=== PATIENT | male | born 1960 | race African-American/Black ===

== ENCOUNTER 2025-06-30 13:36 | Inpatient (IN) | payer BC, MEDICAID ==
[~2025-06-30] VITALS: Ht 180.3 cm; Wt 68.9 kg
[2025-06-30 13:53] VITALS: O2SAT 100
[2025-06-30] MEDS: VANCOMYCIN 1G PREMIX 200 ML IV ONE (14:27)
[2025-06-30] MEDS: SODIUM CHLORIDE 0.9% (SEPSIS BOLUS) IV ONE (14:27)
[2025-06-30 14:55] LABS: HEMATOCRIT. 30.1 % (42.0-52.0); HEMOGLOBIN. 9.9 g/dL (14.0-18.0); MEAN PLATELET VOLUME 8.3 fl (7.4-10.4); PLATELET 445 x1000/uL (130-400); RED BLOOD CELL COUNT 3.56 mill/uL (4.7-6.1); RED CELL DISTRIBUTION WIDTH 23.1 % (11.6-14.6)
[2025-06-30 15:08] LABS: CREATININE 2.9 mg/dL (0.6-1.3); INR 1.1; UREA NITROGEN BLOOD 42 mg/dL (9-23)
[2025-06-30 15:09] LABS: TROPONIN I HIGH SENSITIVITY 11 ng/L (3.0-53)
[2025-06-30 15:10] LABS: ASPARTATE AMINOTRANSFERASE 13 IU/L (<34); BILIRUBIN DIRECT 0.1 mg/dL (<=3.0); BILIRUBIN TOTAL 0.3 mg/dL (0.1-1.0); PROTEIN TOTAL 9.1 g/dL (6.0-8.3)
[2025-06-30 16:19] LABS: BAND% 1.0 % (1.0-6.0); LYMPHOCYTES % MANUAL 10.0 % (20.0-50.0); MONOCYTES % MANUAL 6.0 % (2.0-8.0); NEUTROPHILS % MANUAL 83.0 % (45.0-75.0); PLATELET ESTIMATE INCREASED
[2025-06-30] MEDS: MAGNESIUM 2 G PREMIX 50 ML IV ONE (16:24)
[2025-06-30 18:40] LABS: CLARITY URINE CLEAR (CLEAR); COLOR URINE YELLOW (YELLOW); GLUCOSE URINE NEGATIVE (NEGATIVE); KETONES URINE NEGATIVE (NEGATIVE); LEUKOCYTE ESTERASE URINE NEGATIVE (NEGATIVE); NITRITE URINE NEGATIVE (NEGATIVE); OCCULT BLOOD URINE 1+ (NEGATIVE); PH URINE 6.0 (4.5-8.0); PROTEIN URINE 2+ (NEGATIVE); SPECIFIC GRAVITY URINE 1.008 (1.005-1.030); UROBILINOGEN URINE 1.0 E.U./dL (0.2-1.0)
[2025-06-30] MEDS ORDERED: ZOLPIDEM TARTRATE 5MG TABLET PO PRN (18:45)
[2025-06-30] MEDS ORDERED: MORPHINE SULFATE 2 MG/ML INJ (NOT FOR IM USE) IV PRN (18:45)
[2025-06-30] MEDS ORDERED: ONDANSETRON HCL 4MG/2ML INJ IV PRN (18:45)
[2025-06-30] MEDS ORDERED: MAGNESIUM/ALUMINUM HYDROXIDE/SIMETHICONE 30ML UDC PO PRN (18:45)
[2025-06-30] MEDS ORDERED: CLONIDINE 0.1MG TABLET PO PRN (18:45)
[2025-06-30] MEDS ORDERED: HYDROCODONE/ACETAMINOPHEN 5/325MG TABLET PO PRN (18:45)
[2025-06-30 19:18] LABS: RBC URINE NONE SEEN /hpf (0-2); WBC URINE 0-2 /hpf (0-2)
[2025-06-30 19:19] LABS: BACTERIA URINE TRACE
[2025-06-30] MEDS: PIPERACILLIN/TAZO 3.375G/50ML 50 ML IV SCH (22:02)
[2025-06-30] MEDS: SODIUM CHLORIDE 0.9% 1,000 ML IV SCH (22:02)
[2025-06-30] MEDS: ENOXAPARIN 30MG/0.3ML SYR SUBCUT SCH (22:03)
[2025-06-30 22:30] VITALS: BP 136/78; PULSE 101; RESP 16; TEMP 36.4; O2SAT 100
[2025-07-01] VITALS (7 sets, daily range): BP systolic 117–136; BP diastolic 66–97; PULSE 78–101; RESP 14–18; TEMP 36.418–37.2; O2SAT 97–100
[2025-07-01 00:50] LABS: TROPONIN I HIGH SENSITIVITY 13 ng/L (3.0-53)
[2025-07-01] MEDS: ACETAMINOPHEN 325MG TABLET PO PRN (04:11)
[2025-07-01 07:09] LABS: HEMATOCRIT. 25.5 % (42.0-52.0); HEMOGLOBIN. 8.5 g/dL (14.0-18.0); MEAN PLATELET VOLUME 8.1 fl (7.4-10.4); PLATELET 390 x1000/uL (130-400); RED BLOOD CELL COUNT 3.03 mill/uL (4.7-6.1); RED CELL DISTRIBUTION WIDTH 23.4 % (11.6-14.6)
[2025-07-01 07:43] LABS: UREA NITROGEN BLOOD 27.0 mg/dL (9-23)
[2025-07-01 08:32] LABS: CREATININE 1.6 mg/dL (0.6-1.3)
[2025-07-01 08:38] LABS: *AMPHETAMINES SCREEN URINE NEGATIVE (NEGATIVE); *BARBITURATES SCREEN URINE NEGATIVE (NEGATIVE)
[2025-07-01 08:40] LABS: *BENZODIAZEPINES SCREEN URINE NEGATIVE (NEGATIVE); *COCAINE SCREEN URINE NEGATIVE (NEGATIVE); CANNABINOID URINE SCREEN NEGATIVE (NEGATIVE); ECSTASY MDMA SCREEN URINE NEGATIVE (NEGATIVE); METHADONE URINE SCREEN NEGATIVE (NEGATIVE); OPIATES URINE SCREEN NEGATIVE (NEGATIVE); PHENCYCLIDINE URINE SCREEN NEGATIVE (NEGATIVE)
[2025-07-01] MEDS ORDERED: VANCOMYCIN 750MG PREMIX 150 ML IV SCH (09:00)
[2025-07-01] MEDS: PANTOPRAZOLE SODIUM 40 MG/VIAL IV SCH (09:20)
[2025-07-01 10:06] LABS: TROPONIN I HIGH SENSITIVITY 21 ng/L (3.0-53)
[2025-07-01 12:21] LABS: BAND% 2.0 % (1.0-6.0); EOSINOPHILS % MANUAL 1.0 % (0.0-5.0); LYMPHOCYTES % MANUAL 6.0 % (20.0-50.0); MONOCYTES % MANUAL 10.0 % (2.0-8.0); NEUTROPHILS % MANUAL 81.0 % (45.0-75.0); PLATELET ESTIMATE NORMAL
[2025-07-01] MEDS ORDERED: MORPHINE SULFATE 4 MG/ML INJ (FOR IV/IM USE) IV PRN (12:30)
[2025-07-01] MEDS ORDERED: NALOXONE HCL 0.4MG/ML VIAL IV PRN (12:45)
[2025-07-01 14:10] LABS: TRIGLYCERIDE 131.0 mg/dL (0-150)
[2025-07-01 14:11] LABS: LDL CHOLESTEROL 51.0 mg/dL (5-100)
[2025-07-01] MEDS: POTASSIUM CHLORIDE 20MEQ TABLET SR PO SCH (17:07)
[2025-07-01] MEDS: VANCOMYCIN 750MG PREMIX 150 ML IV SCH (17:29)
[2025-07-02] VITALS: BP 124/84; PULSE 79; RESP 16; TEMP 36.8; O2SAT 99
[2025-07-02 04:00] VITALS: BP 120/81; PULSE 73; RESP 14; TEMP 36.7; O2SAT 99
[2025-07-02 07:54] LABS: BASOPHILS % 0.2 % (0.0-2.0); EOSINOPHILS % 0.5 % (0.0-5.0); HEMATOCRIT. 28.7 % (42.0-52.0); HEMOGLOBIN. 9.2 g/dL (14.0-18.0); LYMPHOCYTES % 10.1 % (20.0-50.0); MEAN PLATELET VOLUME 8.6 fl (7.4-10.4); MONOCYTES % 10.6 % (2.0-8.0); NEUTROPHILS % 78.6 % (40.0-76.0); PLATELET 371 x1000/uL (130-400); RED BLOOD CELL COUNT 3.33 mill/uL (4.7-6.1); RED CELL DISTRIBUTION WIDTH 23.5 % (11.6-14.6)
[2025-07-02 08:00] VITALS: BP 137/78; PULSE 79; RESP 16; TEMP 36.6; O2SAT 100
[2025-07-02 08:07] LABS: ADD RBC MORPHOLOGY NO
[2025-07-02 08:12] LABS: CREATININE 1.4 mg/dL (0.6-1.3); UREA NITROGEN BLOOD 13 mg/dL (9-23)
[2025-07-02 12:00] VITALS: BP 114/76; PULSE 75; RESP 20; TEMP 37; O2SAT 99
[2025-07-02 16:00] VITALS: BP 136/86; PULSE 81; RESP 14; TEMP 36.7; O2SAT 99
[2025-07-02] MEDS: VANCOMYCIN 750MG PREMIX 150 ML IV SCH (18:01)
[2025-07-02 20:00] VITALS: BP 130/75; PULSE 87; RESP 15; TEMP 36.6; O2SAT 99
[2025-07-03] VITALS: BP 145/91; PULSE 88; RESP 13; TEMP 36.7; O2SAT 99
[2025-07-03 04:00] VITALS: BP 155/94; PULSE 82; RESP 13; TEMP 36.4; O2SAT 100
[2025-07-03 07:44] LABS: BASOPHILS % 0.6 % (0.0-2.0); EOSINOPHILS % 1.0 % (0.0-5.0); HEMATOCRIT. 25.6 % (42.0-52.0); HEMOGLOBIN. 8.7 g/dL (14.0-18.0); LYMPHOCYTES % 14.0 % (20.0-50.0); MEAN PLATELET VOLUME 8.5 fl (7.4-10.4); MONOCYTES % 8.4 % (2.0-8.0); NEUTROPHILS % 76.0 % (40.0-76.0); PLATELET 389 x1000/uL (130-400); RED BLOOD CELL COUNT 3.03 mill/uL (4.7-6.1); RED CELL DISTRIBUTION WIDTH 23.2 % (11.6-14.6)
[2025-07-03 07:51] LABS: ADD RBC MORPHOLOGY NO
[2025-07-03 07:57] LABS: CREATININE 1.1 mg/dL (0.6-1.3); UREA NITROGEN BLOOD 9 mg/dL (9-23)
[2025-07-03 08:00] VITALS: BP 136/79; PULSE 94; RESP 16; TEMP 37.1; O2SAT 100
[2025-07-03 12:00] VITALS: BP 151/101; PULSE 86; RESP 13; TEMP 36.7; O2SAT 92
[2025-07-03 16:00] VITALS: BP 153/90; PULSE 86; RESP 15; TEMP 36.6; O2SAT 99
[2025-07-03 20:00] VITALS: BP 143/81; PULSE 85; RESP 12; TEMP 36.5; O2SAT 100
[2025-07-03] MEDS: VANCOMYCIN 1GM PMX (XELLIA) 200 ML IV SCH (21:31)
[2025-07-04] VITALS: BP 150/93; PULSE 84; RESP 14; TEMP 36.7; O2SAT 96
[2025-07-04 04:00] VITALS: BP 160/78; PULSE 82; RESP 15; TEMP 36.9; O2SAT 96
[2025-07-04 07:31] LABS: BASOPHILS % 0.6 % (0.0-2.0); EOSINOPHILS % 1.6 % (0.0-5.0); HEMATOCRIT. 25.4 % (42.0-52.0); HEMOGLOBIN. 8.4 g/dL (14.0-18.0); LYMPHOCYTES % 15.4 % (20.0-50.0); MEAN PLATELET VOLUME 8.4 fl (7.4-10.4); MONOCYTES % 8.7 % (2.0-8.0); NEUTROPHILS % 73.7 % (40.0-76.0); PLATELET 393 x1000/uL (130-400); RED BLOOD CELL COUNT 3.00 mill/uL (4.7-6.1); RED CELL DISTRIBUTION WIDTH 23.9 % (11.6-14.6)
[2025-07-04 07:45] LABS: CREATININE 1.2 mg/dL (0.6-1.3); UREA NITROGEN BLOOD 9 mg/dL (9-23)
[2025-07-04 08:00] VITALS: BP 157/94; PULSE 76; RESP 18; TEMP 36.9; O2SAT 100
[2025-07-04 12:00] VITALS: BP 131/88; PULSE 77; RESP 18; TEMP 36.8; O2SAT 98
[2025-07-04 16:00] VITALS: BP 150/94; PULSE 75; TEMP 36.7; O2SAT 97
[2025-07-04 20:00] VITALS: BP 152/92; PULSE 80; RESP 22; TEMP 36.7; O2SAT 96
[2025-07-04] MEDS: VANCOMYCIN 750MG PREMIX 150 ML IV SCH (21:40)
[2025-07-05] VITALS: BP 171/105; PULSE 82; RESP 18; TEMP 36.6; O2SAT 98
[2025-07-05 04:00] VITALS: BP 152/99; PULSE 99; RESP 18; TEMP 36.3; O2SAT 98
[2025-07-05 08:00] VITALS: BP_SYST 126; BP_SYST 141; BP_DIAS 93; BP_DIAS 95; PULSE 83; PULSE 99; RESP 12; RESP 19; TEMP 36.6; TEMP 36.7; O2SAT 99
[2025-07-05] MEDS: FAMOTIDINE 20MG/2ML VIAL IV SCH (08:33)
[2025-07-05 12:00] VITALS: BP 128/91; PULSE 99; RESP 13; TEMP 36.8; O2SAT 99
[2025-07-05 16:00] VITALS: BP 141/93; PULSE 83; RESP 12; TEMP 36.7; O2SAT 99
[2025-07-05 20:00] VITALS: BP 140/86; PULSE 82; RESP 18; TEMP 36.8; O2SAT 98
[2025-07-05] MEDS: ENOXAPARIN 40MG/0.4ML SYR SUBCUT SCH (21:28)
[2025-07-06] VITALS: BP 144/103; PULSE 87; RESP 20; TEMP 36.6; O2SAT 99
[2025-07-06 04:00] VITALS: BP 150/102; PULSE 93; RESP 19; TEMP 36.7; O2SAT 100
[2025-07-06 06:39] LABS: BASOPHILS % 1.0 % (0.0-2.0); EOSINOPHILS % 2.3 % (0.0-5.0); HEMATOCRIT. 25.3 % (42.0-52.0); HEMOGLOBIN. 8.3 g/dL (14.0-18.0); LYMPHOCYTES % 20.1 % (20.0-50.0); MEAN PLATELET VOLUME 8.0 fl (7.4-10.4); MONOCYTES % 10.0 % (2.0-8.0); NEUTROPHILS % 66.6 % (40.0-76.0); PLATELET 427 x1000/uL (130-400); RED BLOOD CELL COUNT 3.01 mill/uL (4.7-6.1); RED CELL DISTRIBUTION WIDTH 23.9 % (11.6-14.6)
[2025-07-06 06:59] LABS: CREATININE 1.1 mg/dL (0.6-1.3); UREA NITROGEN BLOOD 9 mg/dL (9-23)
[2025-07-06 08:00] VITALS: BP 136/94; PULSE 92; RESP 19; TEMP 37.1; O2SAT 100
[2025-07-06] MEDS ORDERED: POLYMYXIN B SULFATE 500000 UNITS/VIAL ONE (10:20)
[2025-07-06] MEDS ORDERED: LIDOCAINE HCL 1% 10 MG/ML 10ML VIAL ONE (10:21)
[2025-07-06] MEDS ORDERED: BUPIVACAINE HCL/PF 0.5% (5MG/ML) 10ML ONE (10:21)
[2025-07-06] MEDS ORDERED: VANCOMYCIN HCL 1GM VIAL ONE (10:22)
[2025-07-06 12:00] VITALS: BP 135/87; PULSE 87; RESP 13; TEMP 37.1; O2SAT 97
[2025-07-06] MEDS ORDERED: MIDAZOLAM HCL 2 MG/2 ML VIAL ONE ×2 (13:25→13:44)
[2025-07-06] MEDS ORDERED: FENTANYL CITRATE/PF 50MCG/ML 2ML VIAL ONE ×2 (13:25→13:51)
[2025-07-06] MEDS ORDERED: ONDANSETRON HCL 4MG/2ML INJ IV PRN (13:30)
[2025-07-06] MEDS ORDERED: HYDROMORPHONE HCL/PF 1MG/ML INJ IV PRN (13:30)
[2025-07-06] MEDS ORDERED: PROPOFOL 200MG/20ML VIAL IV ONE (13:57)
[2025-07-06 16:00] VITALS: BP 151/95; PULSE 76; RESP 12; TEMP 36.6; O2SAT 98
[2025-07-06 20:00] VITALS: BP 144/95; PULSE 97; RESP 12; TEMP 36.8; O2SAT 98
[2025-07-06] MEDS: AMLODIPINE 2.5MG TABLET PO SCH (20:59)
[2025-07-07] VITALS: BP 139/93; PULSE 78; RESP 16; TEMP 36.7; O2SAT 100
[2025-07-07 04:00] VITALS: BP 148/88; PULSE 78; RESP 15; TEMP 36.6; O2SAT 100
[2025-07-07 08:00] VITALS: BP 126/78; PULSE 79; RESP 11; TEMP 36.8; O2SAT 99
[2025-07-07 12:00] VITALS: BP 136/83; PULSE 78; RESP 13; TEMP 36.9; O2SAT 99
[2025-07-07 16:00] VITALS: BP 127/78; PULSE 87; RESP 12; TEMP 36.9; O2SAT 99
[2025-07-07 20:00] VITALS: BP 130/78; PULSE 81; RESP 14; TEMP 37; O2SAT 99
[2025-07-07] MEDS: FAMOTIDINE 20MG TABLET PO SCH (21:09)
[2025-07-07] MEDS: ENOXAPARIN 40MG/0.4ML SYR SUBCUT SCH (21:10)
[2025-07-08] VITALS: BP 135/81; PULSE 85; RESP 15; TEMP 36.9; O2SAT 100
[2025-07-08 04:00] VITALS: BP 150/90; PULSE 76; RESP 16; TEMP 36.6; O2SAT 98
[2025-07-08 12:00] VITALS: BP 133/86; PULSE 78; RESP 12; TEMP 36.8; O2SAT 100
[2025-07-08] MEDS: AMPICILLIN SOD/SULBACTAM NA 3 G in SODIUM CHLORIDE 0.9% 100 ML IV SCH (13:51)
[2025-07-08 16:00] VITALS: BP 120/68; PULSE 76; RESP 14; TEMP 36.8; O2SAT 95
[2025-07-08 20:01] VITALS: BP 128/80; PULSE 92; RESP 19; TEMP 36.7; O2SAT 99
[2025-07-09] VITALS (7 sets, daily range): BP systolic 117–144; BP diastolic 75–93; PULSE 78–91; RESP 10–22; TEMP 36.2–36.9; O2SAT 97–100
[2025-07-09] MEDS ORDERED: AMLO2.5T45 PO (08:47)
[2025-07-09] MEDS ORDERED: AMOX1TAB16 MT (08:47)
[2025-07-09] MEDS ORDERED: HYDR-4001 MT (08:47)
[2025-07-09 09:33] LABS: BASOPHILS % 0.7 % (0.0-2.0); EOSINOPHILS % 3.2 % (0.0-5.0); HEMATOCRIT. 26.5 % (42.0-52.0); HEMOGLOBIN. 8.7 g/dL (14.0-18.0); LYMPHOCYTES % 27.0 % (20.0-50.0); MEAN PLATELET VOLUME 7.7 fl (7.4-10.4); MONOCYTES % 6.7 % (2.0-8.0); NEUTROPHILS % 62.4 % (40.0-76.0); PLATELET 424 x1000/uL (130-400); RED BLOOD CELL COUNT 3.14 mill/uL (4.7-6.1); RED CELL DISTRIBUTION WIDTH 24.2 % (11.6-14.6)
[2025-07-09 09:44] LABS: CREATININE 1.1 mg/dL (0.6-1.3)
[2025-07-09 09:45] LABS: UREA NITROGEN BLOOD 8 mg/dL (9-23)
[2025-07-10] VITALS: BP 135/85; PULSE 89; RESP 20; TEMP 36.4; O2SAT 99
[2025-07-10 04:00] VITALS: BP 121/84; PULSE 73; RESP 18; TEMP 36.2; O2SAT 98
[2025-07-10 08:00] VITALS: BP 140/94; PULSE 78; RESP 15; TEMP 36.7; O2SAT 98
[2025-07-10 12:00] VITALS: BP 152/87; PULSE 79; RESP 17; TEMP 36.4; O2SAT 100
[2025-07-10 16:00] VITALS: BP 104/57; PULSE 86; RESP 18; TEMP 36.8; O2SAT 98
[2025-07-10 20:00] VITALS: BP 113/83; PULSE 94; RESP 18; TEMP 36.3; O2SAT 98
[2025-07-11] VITALS: BP 105/68; PULSE 85; RESP 18; TEMP 36.3; O2SAT 98
[2025-07-11 04:00] VITALS: BP 126/80; PULSE 82; RESP 18; TEMP 36.4
[2025-07-11 08:00] VITALS: BP 121/79; PULSE 77; RESP 18; TEMP 36.8
[2025-07-11 12:00] VITALS: BP 112/62; PULSE 81; RESP 18; TEMP 36.7; O2SAT 100
[2025-07-11 16:00] VITALS: BP 114/65; PULSE 85; RESP 18; TEMP 36.6; O2SAT 98
[2025-07-11 20:00] VITALS: BP 124/75; PULSE 80; RESP 18; TEMP 36.5; O2SAT 99
[2025-07-12] VITALS: BP 122/81; PULSE 81; RESP 19; TEMP 37.1; O2SAT 98
[2025-07-12 04:00] VITALS: BP 125/80; PULSE 18; RESP 18; TEMP 37.1; O2SAT 97
[2025-07-12 08:00] VITALS: BP 152/95; PULSE 89; RESP 19; TEMP 36.4; O2SAT 99
[2025-07-12 12:00] VITALS: BP 112/78; PULSE 93; RESP 19; TEMP 37.2; O2SAT 99
[2025-07-12 16:00] VITALS: BP 111/78; PULSE 84; RESP 20; TEMP 37; O2SAT 98
[2025-07-12 20:00] VITALS: BP 109/70; PULSE 83; RESP 18; TEMP 37; O2SAT 99
[2025-07-13] VITALS: BP 112/70; PULSE 77; RESP 16; TEMP 36.4; O2SAT 98
[2025-07-13 04:00] VITALS: BP 133/79; PULSE 83; RESP 16; TEMP 36.3; O2SAT 97
[2025-07-13 08:00] VITALS: BP 117/76; PULSE 87; RESP 18; TEMP 36.5; O2SAT 99
[2025-07-13 12:00] VITALS: BP 110/88; PULSE 87; RESP 18; TEMP 36.3; O2SAT 98
[2025-07-13 16:00] VITALS: BP 108/78; PULSE 83; RESP 18; TEMP 36.5; O2SAT 98
[2025-07-13 20:00] VITALS: BP 119/75; PULSE 82; RESP 18; TEMP 36.2; O2SAT 99
[2025-07-14] VITALS: BP 120/77; PULSE 79; RESP 18; TEMP 36.3; O2SAT 99
[2025-07-14 04:00] VITALS: BP 124/79; PULSE 84; RESP 19; TEMP 36.2; O2SAT 98
[2025-07-14 08:00] VITALS: BP 121/83; PULSE 87; RESP 18; TEMP 36.5; O2SAT 99
[2025-07-14 12:00] VITALS: BP 120/77; PULSE 83; RESP 16; TEMP 36.6; O2SAT 99
[2025-07-14 16:00] VITALS: BP 119/76; PULSE 81; RESP 16; TEMP 37.4; O2SAT 99
[2025-07-14 20:00] VITALS: BP 101/60; PULSE 80; RESP 18; TEMP 36.3; O2SAT 98
[2025-07-15] VITALS: BP 101/60; PULSE 80; RESP 18; TEMP 36.3; O2SAT 98
[2025-07-15 04:00] VITALS: BP 106/58; PULSE 74; RESP 18; TEMP 36.7; O2SAT 99
[2025-07-15 08:00] VITALS: BP 115/71; PULSE 84; RESP 17; TEMP 36.7; O2SAT 99
[2025-07-15 12:00] VITALS: BP 110/76; PULSE 87; RESP 18; TEMP 36.7; O2SAT 99
[2025-07-15 16:00] VITALS: BP 108/80; PULSE 81; RESP 18; TEMP 36.7; O2SAT 99
[2025-07-15 20:00] VITALS: BP 134/60; PULSE 91; RESP 18; TEMP 37.1; O2SAT 96
[2025-07-16] VITALS: BP 140/74; PULSE 82; RESP 18; TEMP 36.4; O2SAT 97
[2025-07-16 04:00] VITALS: BP 127/80; PULSE 76; RESP 18; TEMP 36.7; O2SAT 96
[2025-07-16 06:59] LABS: BASOPHILS % 1.1 % (0.0-2.0); EOSINOPHILS % 4.6 % (0.0-5.0); HEMATOCRIT. 27.7 % (42.0-52.0); HEMOGLOBIN. 9.0 g/dL (14.0-18.0); LYMPHOCYTES % 26.9 % (20.0-50.0); MEAN PLATELET VOLUME 8.0 fl (7.4-10.4); MONOCYTES % 6.7 % (2.0-8.0); NEUTROPHILS % 60.7 % (40.0-76.0); PLATELET 368 x1000/uL (130-400); RED BLOOD CELL COUNT 3.31 mill/uL (4.7-6.1); RED CELL DISTRIBUTION WIDTH 24.0 % (11.6-14.6)
[2025-07-16 07:04] LABS: ADD RBC MORPHOLOGY NO
[2025-07-16 07:32] LABS: CREATININE 1.4 mg/dL (0.6-1.3)
[2025-07-16 07:34] LABS: UREA NITROGEN BLOOD 16 mg/dL (9-23)
[2025-07-16 08:00] VITALS: BP 94/56; PULSE 78; RESP 16; TEMP 36.6; O2SAT 99
[2025-07-16 12:00] VITALS: BP 107/69; PULSE 80; RESP 18; TEMP 36.7; O2SAT 100
[2025-07-16 20:00] VITALS: BP 102/63; PULSE 85; RESP 19; TEMP 36.4; O2SAT 97
[2025-07-17] VITALS: BP 110/67; PULSE 84; RESP 18; TEMP 36.3; O2SAT 96
[2025-07-17 04:00] VITALS: BP 118/79; PULSE 79; RESP 19; TEMP 36.2; O2SAT 99
[2025-07-17 08:00] VITALS: BP 142/86; PULSE 84; RESP 18; TEMP 36.4; O2SAT 97
[2025-07-17 12:00] VITALS: BP 138/79; PULSE 80; RESP 18; TEMP 36.4; O2SAT 97
[2025-07-17 16:00] VITALS: BP 98/58; PULSE 100; RESP 18; TEMP 36.7; O2SAT 97
[2025-07-17 20:00] VITALS: BP 112/70; PULSE 84; RESP 18; TEMP 36.4; O2SAT 95
[2025-07-17 22:15] LABS: CREATININE 1.4 mg/dL (0.6-1.3); UREA NITROGEN BLOOD 23 mg/dL (9-23)
[2025-07-18] VITALS: BP 108/74; PULSE 85; RESP 19; TEMP 36.1; O2SAT 96
[2025-07-18 04:00] VITALS: BP 103/68; PULSE 85; RESP 18; TEMP 36.4; O2SAT 94
[2025-07-18 08:00] VITALS: BP 117/79; PULSE 94; RESP 20; TEMP 36.4; O2SAT 99
[2025-07-18] MEDS: SODIUM ZIRCONIUM CYCLOSILICATE 10GM/PACKET PO SCH (11:18)
[2025-07-18 12:00] VITALS: BP 104/68; PULSE 84; RESP 18; TEMP 36.6; O2SAT 97
[2025-07-18 16:00] VITALS: BP 119/72; PULSE 92; RESP 20; TEMP 36.3; O2SAT 98
[2025-07-18 20:00] VITALS: BP 120/78; PULSE 87; RESP 18; TEMP 36.3; O2SAT 100
[2025-07-19 04:00] VITALS: BP 126/78; PULSE 80; RESP 18; TEMP 36.4; O2SAT 100
[2025-07-19 08:00] VITALS: BP 109/77; PULSE 82; RESP 20; TEMP 36.4; O2SAT 100
[2025-07-19 09:47] LABS: BASOPHILS % 1.2 % (0.0-2.0); EOSINOPHILS % 7.8 % (0.0-5.0); HEMATOCRIT. 29.2 % (42.0-52.0); HEMOGLOBIN. 9.4 g/dL (14.0-18.0); LYMPHOCYTES % 34.3 % (20.0-50.0); MEAN PLATELET VOLUME 8.0 fl (7.4-10.4); MONOCYTES % 6.9 % (2.0-8.0); NEUTROPHILS % 49.8 % (40.0-76.0); PLATELET 330 x1000/uL (130-400); RED BLOOD CELL COUNT 3.48 mill/uL (4.7-6.1); RED CELL DISTRIBUTION WIDTH 23.9 % (11.6-14.6)
[2025-07-19 09:54] LABS: ADD RBC MORPHOLOGY NO
[2025-07-19 10:11] LABS: CREATININE 1.4 mg/dL (0.6-1.3); UREA NITROGEN BLOOD 20 mg/dL (9-23)
[2025-07-19 12:00] VITALS: BP 101/57; PULSE 89; RESP 16; TEMP 35.9; O2SAT 98
[2025-07-19 16:00] VITALS: BP 104/70; PULSE 87; RESP 16; TEMP 36.4; O2SAT 98
[2025-07-19 16:07] VITALS: BP 107/78; PULSE 87; RESP 16; TEMP 97.6
== END 2025-07-19 16:50 | disposition home health service (06) | DRG 853 ==
LOC: ER 13:36 → 3WST 17:02 → EDBEDREQSVC 17:11 → EDBEDREQTM 17:11 → EDBEDREQ 17:11 → EDBEDREQSVC 18:47 → ENRESERV 19:14 → 3WST 07-04 22:46 → 4WST 07-10 11:35 → 7EST 07-15 16:47
PROVIDERS: ADMIT Internal Medicine; ATTEND Internal Medicine
PROC: 0Y6R0Z0 Detachment at Right 2nd Toe, Complete, Open Approach (ICD-10-PCS; principal; 2025-07-06)
DX: A40.8 Other streptococcal sepsis (principal); G92.8 Other toxic encephalopathy; E87.20 Acidosis, unspecified; N17.9 Acute kidney failure, unspecified; D63.8 Anemia in other chronic diseases classified elsewhere; G90.89 Other disorders of autonomic nervous system; S91.301A Unspecified open wound, right foot, initial encounter; E11.52 Type 2 diabetes mellitus with diabetic peripheral angiopathy with gangrene; M86.8X7 Other osteomyelitis, ankle and foot; N18.9 Chronic kidney disease, unspecified; I12.9 Hypertensive chronic kidney disease with stage 1 through stage 4 chronic kidney disease, or unspecified chronic kidney disease; E87.1 Hypo-osmolality and hyponatremia; E86.0 Dehydration; L97.519 Non-pressure chronic ulcer of other part of right foot with unspecified severity; D75.839 Thrombocytosis, unspecified; E86.1 Hypovolemia; E87.6 Hypokalemia; R79.89 Other specified abnormal findings of blood chemistry; M48.02 Spinal stenosis, cervical region; S91.302A Unspecified open wound, left foot, initial encounter; F17.200 Nicotine dependence, unspecified, uncomplicated; Z89.412 Acquired absence of left great toe; Z89.421 Acquired absence of other right toe(s); X58.XXXA Exposure to other specified factors, initial encounter; Y93.89 Activity, other specified; Y92.89 Other specified places as the place of occurrence of the external cause; Y99.8 Other external cause status
CPT/HCPCS: 36415; 70551; 71045; 72170; 73630; 73721; 76770; 80048; 80061; 80076; 80202; 80305; 81003; 82533; 82550; 82962; 83605; 83735; 83880; 83930; 84145; 84443; 84484; 85025; 87070; 87075; 87077; 87186; 88304; 93005; 93306; 93880; 93923; 93970; 96365; 96367; 97116; 97161; 97166; 97530; 97535; 99291; A4606; J0295; J0665; J1308; J1650; J2003; J2250; J2470; J2543; J2704; J3010; J3373; J3475; J3490; J7030; J7050; A4217